=== PATIENT | female | born 1975 | race Caucasian/White ===

== ENCOUNTER 2022-02-03 09:15 | Inpatient (IN) | payer OTHER ==
[~2022-02-03] VITALS: Ht 167.6 cm; Wt 81.2 kg
[2022-02-04] MEDS ORDERED: HYDRALAZINE HC100 MG (11:56)
[2022-02-04] MEDS ORDERED: ATORVASTATIN CA80 MG (11:56)
[2022-02-04] MEDS ORDERED: METOPROLOL SUC200 MG (11:56)
[2022-02-04] MEDS ORDERED: HYDROCHLOROTHIA25 MG (11:56)
[2022-02-04] MEDS ORDERED: AMLODIPINE BESY10 MG (11:56)
[2022-02-04] MEDS ORDERED: EZETIMIBE10 MG (11:56)
[2022-02-04] MEDS ORDERED: IRBESARTAN300 MG (11:56)
== END 2022-02-05 10:28 | disposition home or self-care (01) | DRG 743 ==
LOC: O/R 02-04 06:00 → OB/GYN 02-04 06:00 → SURG 02-04 09:15 → OB/GYN 02-04 16:58
PROVIDERS: ADMIT Obstetrics & Gynecology; ATTEND Obstetrics & Gynecology
PROC: 0UT74ZZ Resection of Bilateral Fallopian Tubes, Percutaneous Endoscopic Approach (ICD-10-PCS; 2022-02-04)
PROC: 0UT24ZZ Resection of Bilateral Ovaries, Percutaneous Endoscopic Approach (ICD-10-PCS; 2022-02-04)
PROC: 0UT94ZZ Resection of Uterus, Percutaneous Endoscopic Approach (ICD-10-PCS; principal; 2022-02-04 12:45)
DX: D25.1 Intramural leiomyoma of uterus (principal); D25.2 Subserosal leiomyoma of uterus; N80.0 Endometriosis of uterus; N83.12 Corpus luteum cyst of left ovary; D27.0 Benign neoplasm of right ovary; N72 Inflammatory disease of cervix uteri; Z20.822 Contact with and (suspected) exposure to COVID-19

== ENCOUNTER 2024-08-17 05:32 | Day surgery (SDC) | payer OTHER ==
[~2024-08-17 05:32] MED LIST: AMLODIPINE BESY10 MG; ATORVASTATIN CA80 MG; EZETIMIBE10 MG; HYDRALAZINE HC100 MG; HYDROCHLOROTHIA25 MG; IRBESARTAN300 MG; METOPROLOL SUC200 MG
[2024-08-17] MEDS ORDERED: fentaNYL CITRATE 50 MCG/ML AMPUL IV PUSH ONE (09:30)
[2024-08-17] MEDS ORDERED: MIDAZOLAM HCL 2 MG/2 ML VIAL IV ONE (09:30)
[2024-08-17] MEDS ORDERED: DIPHENHYDRAMINE HCL 50 MG/ML VIAL 1ML IV ONE (09:30)
== END 2024-08-17 11:10 | disposition home or self-care (01) ==
LOC: AMB-ENDOS 05:32
PROVIDERS: ATTEND Internal Medicine
DX: D12.2 Benign neoplasm of ascending colon (principal); D12.5 Benign neoplasm of sigmoid colon; K63.5 Polyp of colon; K57.30 Diverticulosis of large intestine without perforation or abscess without bleeding; D12.4 Benign neoplasm of descending colon